=== PATIENT | male | born 1955 | race Caucasian/White ===

== ENCOUNTER 2019-07-15 06:03 | Inpatient (IN) | payer OTHER ==
[2019-07-04 16:23] VITALS: BMI 23.7
[2019-07-15] MEDS ORDERED: BUPIVACAINE HCL/PF 0.5% (5 MG/ML) 30 ML VIAL IJ ONE (06:55)
[2019-07-15] MEDS ORDERED: MIDAZOLAM HCL 2 MG/2 ML SINGLE DOSE VIAL ONE (06:55)
[2019-07-15] MEDS ORDERED: ceFAZolin SODIUM 1 GM VIAL ONE ×2 (07:10→07:21)
[2019-07-15] MEDS ORDERED: VANCOMYCIN 1,000 MG VIAL (RESTRICTED TO ID ONLY) ONE (07:10)
[2019-07-15] MEDS ORDERED: PROPOFOL 20 ML ONE ×2 (07:20→08:00)
[2019-07-15] MEDS ORDERED: SUCCINYLCHOLINE CHLORIDE 200 MG/10 ML SYRINGE ONE (07:20)
[2019-07-15] MEDS ORDERED: TRANEXAMIC ACID 1000 MG/10 ML VIAL ONE (07:21)
[2019-07-15] MEDS ORDERED: ONDANSETRON 4 MG/2 ML VIAL ONE (07:21)
[2019-07-15] MEDS ORDERED: SODIUM CHLORIDE 0.9% P/F 10 ML VIAL IJ ONE (07:21)
[2019-07-15] MEDS ORDERED: DEXMEDETOMIDINE HCL 200 MCG/2 ML IVPB ONE (07:27)
--- NOTE | 2019-07-15 07:57 | HP ---
Satellite [facility] - Chief Complaint Chief Complaint: left hip pain - Past Medical History Allergies/Adverse Reactions: Allergies Allergy/AdvReac Type Severity Reaction Status Date / Time No Known Allergies Allergy Verified 07/15/19 06:55 - Current Medications Current Medications: Home Medications Medication Instructions Recorded Apixaban [Eliquis] 5 mg PO BID 07/04/19 Aspirin [ASA -] 81 mg PO DAILY 07/04/19 Atorvastatin Ca [Lipitor] 40 mg PO HS 07/04/19 Buspirone HCl [Buspar -] 30 mg PO BID 07/04/19 Lisinopril/Hydrochlorothiazide 1 each PO BID 07/04/19 [Lisinopril-Hctz 20-12.5 mg Tab] Metoprolol Succinate 50 mg PO DAILY 07/04/19 Oxycodone HCl/Acetaminophen 1 each PO QID 07/04/19 [Percocet 10-325 mg Tablet] Ranitidine HCl [Zantac] 150 mg PO DAILY 07/04/19 Satellite Physical Exam - Physical Examination Vital Signs: Vital Signs Period Temp Pulse Resp BP Sys/Bautista Pulse Ox Last 24 Hr 98.1 F 60 16 146/91 96 General Appearance: Well Nourished, Well Developed, Alert & Oriented x3 ENT: Clear Lung: Normal air movement Heart: Regular rate & rhythm Extremities: Other (left hip- + ttp, decr rom, nvi, xrays show grade 4 hip djd) Neurological: Intact, Alert, Oriented Satellite Impression/Plan - Impression/Plan Impression: left hip djd Operative Procedure: left giuseppe thr Date to be Performed: 07/15/19
[2019-07-15] MEDS ORDERED: DEXAMETHASONE SOD PHOSPHATE 4 MG/1 ML VIAL ONE (07:59)
[2019-07-15] MEDS ORDERED: ROCURONIUM BROMIDE 50 MG/5 ML SYRINGE ONE (07:59)
[2019-07-15] MEDS ORDERED: LIDOCAINE HCL/PF 2% SDV 5ML VIAL ONE (07:59)
[2019-07-15] MEDS ORDERED: CELECOXIB 200 MG CAPSULE PO ONE (08:20)
[2019-07-15] MEDS ORDERED: CEFAZOLIN 2 GM/D5W 2 GM/50 ML ML IVPB ONE (08:20)
[2019-07-15] MEDS ORDERED: GABAPENTIN 300 MG CAPSULE (FP) PO ONE (08:20)
[2019-07-15] MEDS ORDERED: TRANEXAMIC ACID 1000 MG/10 ML VIAL IVPUSH ONE (08:20)
[2019-07-15] MEDS ORDERED: VANCOMYCIN 1,000 MG VIAL (RESTRICTED TO ID ONLY) IVPB ONE (09:26)
[2019-07-15] MEDS ORDERED: LABETALOL HCL 5 MG/1 ML (100MG/20 ML VIAL) ONE (09:37)
[2019-07-15] MEDS ORDERED: NEOSTIGMINE METHYLSULFATE 0.5 MG/ML - 10 ML MDV ONE (09:43)
[2019-07-15] MEDS ORDERED: KETOROLAC TROMETHAMINE 30 MG/1 ML VIAL ONE (09:44)
[2019-07-15] MEDS ORDERED: GLYCOPYRROLATE 0.2 MG/1 ML VIAL ONE (09:44)
[2019-07-15] MEDS ORDERED: MAG HYDROX/AL HYDROX/SIMETH 30 ML UNIT-DOSE CUP PO PRN ×2 (09:53→10:23)
[2019-07-15] MEDS ORDERED: MAGNESIUM HYDROX 2400MG/30ML ORAL SUSPENSION 30 ML CUP PO PRN ×2 (09:53→10:23)
[2019-07-15] MEDS ORDERED: ONDANSETRON 4 MG/2 ML VIAL IVPUSH PRN ×3 (09:53→10:23)
--- NOTE | 2019-07-15 09:58 | OP ---
Operative Note - Note: Operative Date: 07/15/19 (jayden) Pre-Operative Diagnosis: left hip djd Operation: left giuseppe thr Post-Operative Diagnosis: Same as Pre-op Surgeon: Bucky Saldivar Box Annealer: Fuentes Mackenzie Anesthesiologist/LIVING NURSE: Que Figueroa Anesthesia: General, Local Specimens Removed: femoral head Estimated Blood Loss (mls): 100 Operative Report Dictated: Yes
[2019-07-15] MEDS ORDERED: PATIENT'S OWN MEDICATION (NON-FORMULARY) (Lisinopril/Hydrochlorothiazide [Lisinopril-Hctz PO SCH ×2 (10:00→10:30)
[2019-07-15] MEDS ORDERED: SENNOSIDES/DOCUSATE COMBO (SENNA PLUS) TABLET (UD) PO SCH (10:00)
[2019-07-15] MEDS ORDERED: PANTOPRAZOLE 40 MG TABLET (FP) PO SCH (10:00)
[2019-07-15] MEDS ORDERED: LACTATED RINGERS SOLUTION 1,000 ML IV SCH ×2 (10:00→10:30)
[2019-07-15] MEDS ORDERED: RANITIDINE HCL 150 MG TABLET (FP) PO SCH ×2 (10:00→10:30)
[2019-07-15] MEDS ORDERED: BUSPIRONE HCL PO SCH ×2 (10:00→10:30)
[2019-07-15] MEDS ORDERED: MULTIVITAMINS (DAILY MVI) TABLET (FP) PO SCH (10:00)
[2019-07-15] MEDS ORDERED: PROMETHAZINE HCL 25 MG/1 ML VIAL IVPUSH PRN (10:22)
[2019-07-15] MEDS ORDERED: oxyCODONE HCL 5 MG TABLET PO PRN (10:22)
[2019-07-15] MEDS ORDERED: oxyCODONE HCL 5 MG TABLET ONE (11:33)
[2019-07-15] MEDS ORDERED: ACETAMINOPHEN 325 MG TABLET (FP) ONE (11:33)
[2019-07-15] MEDS: oxyCODONE HCL 5 MG TABLET PO PRN ×3 (11:35→20:03)
[2019-07-15] MEDS: ACETAMINOPHEN 325 MG TABLET (FP) PO SCH ×3 (11:35→23:15)
[2019-07-15] MEDS ORDERED: HYDROmorphone HCL 0.5 MG/0.5 ML SYRINGE ONE (11:48)
[2019-07-15] MEDS ORDERED: HYDROmorphone HCL CARPU-JECT 2 MG/1 ML DISP.SYRIN IVPUSH ONE (11:50)
[2019-07-15] MEDS: PANTOPRAZOLE 40 MG TABLET (FP) PO SCH (13:06)
[2019-07-15] MEDS ORDERED: KETOROLAC TROMETHAMINE 30 MG/1 ML VIAL IVPUSH SCH (15:30)
[2019-07-15] MEDS ORDERED: CEFAZOLIN 2 GM in DEXTROSE 5%-WATER - 50 ML IVPB SCH (16:00)
[2019-07-15] MEDS: KETOROLAC TROMETHAMINE 30 MG/1 ML VIAL IVPUSH SCH (16:01)
[2019-07-15] MEDS: diazePAM 5 MG TABLET PO SCH ×2 (16:02→23:15)
[2019-07-15] MEDS: CEFAZOLIN 2 GM/D5W 2 GM/50 ML ML IVPB SCH ×2 (16:03→23:16)
[2019-07-15] MEDS: HYDROCHLOROTHIAZIDE 12.5 MG CAPSULE (FP) PO SCH (21:15)
[2019-07-15] MEDS: busPIRone HCL 5 MG TABLET PO SCH (21:15)
[2019-07-15] MEDS: SENNOSIDES/DOCUSATE COMBO (SENNA PLUS) TABLET (UD) PO SCH (21:15)
[2019-07-15] MEDS: ATORVASTATIN CA 40 MG TABLET (FP) PO SCH (21:16)
[2019-07-15] MEDS: oxyCODONE HCL 10 MG SUSTAINED ACTING TABLET PO SCH (21:16)
[2019-07-15] MEDS: LISINOPRIL 20 MG TABLET (FP) PO SCH (21:16)
[2019-07-15] MEDS ORDERED: ATORVASTATIN CA 40 MG TABLET (FP) PO SCH (22:00)
[2019-07-15] MEDS: HYDROmorphone HCL CARPU-JECT 1 MG/1 ML DISP.SYRIN IVPB PRN (22:18)
[2019-07-16] MEDS: KETOROLAC TROMETHAMINE 30 MG/1 ML VIAL IVPUSH SCH ×3 (01:36→17:18)
[2019-07-16] MEDS: oxyCODONE HCL 5 MG TABLET PO PRN ×3 (03:59→14:41)
[2019-07-16] MEDS: diazePAM 5 MG TABLET PO SCH ×4 (06:13→23:38)
[2019-07-16] MEDS: ACETAMINOPHEN 325 MG TABLET (FP) PO SCH ×4 (06:13→23:38)
[2019-07-16] MEDS: HYDROmorphone HCL CARPU-JECT 1 MG/1 ML DISP.SYRIN IVPB PRN ×2 (06:35→17:18)
--- NOTE | 2019-07-16 07:23 | CONSULT ---
Consult - Past Medical History Cardio/Vascular: Yes: AFIB, CAD, HTN, Hyperlipdemia Pulmonary: No: Asthma Gastrointestinal: No: GI Bleed, Irritable Bowel Disease Hepatobiliary: No: Cirrhosis Psych: Yes: Anxiety Musculoskeletal: Yes: Osteoarthritis - Past Surgical History Past Surgical History: Yes: CABG - Alcohol/Substance Use Hx Alcohol Use: Yes (very little) - Smoking History Smoking history: Former smoker Have you smoked in the past 12 months: No If you are a former smoker, when did you quit?: 6 mo ago Home Medications - Allergies Allergies/Adverse Reactions: Allergies Allergy/AdvReac Type Severity Reaction Status Date / Time No Known Allergies Allergy Verified 07/15/19 06:55 - Home Medications Home Medications: Ambulatory Orders Apixaban [Eliquis] 5 mg PO BID 07/04/19 Aspirin [ASA -] 81 mg PO DAILY 07/04/19 Atorvastatin Ca [Lipitor] 40 mg PO HS 07/04/19 Buspirone HCl [Buspar -] 30 mg PO BID 07/04/19 Lisinopril/Hydrochlorothiazide [Lisinopril-Hctz 20-12.5 mg Tab] 1 each PO BID Metoprolol Succinate 50 mg PO DAILY 07/04/19 Ranitidine HCl [Zantac] 150 mg PO DAILY 07/04/19 Oxycodone HCl/Acetaminophen [Percocet 5-325 mg Tablet -] 1 - 2 tab PO Q6H #50 tab MDD 8 07/15/19 Review of Systems - Review of Systems Cardiovascular: reports: No Symptoms Respiratory: reports: No Symptoms Gastrointestinal: reports: No Symptoms Genitourinary: reports: No Symptoms Musculoskeletal: reports: Joint Pain, Muscle Weakness Neurological: reports: No Symptoms Physical Exam Vital Signs: Vital Signs Temperature 98.1 F 07/16/19 05:00 Pulse Rate 68 07/16/19 05:00 Respiratory Rate 19 07/16/19 05:00 Blood Pressure 145/84 07/16/19 05:00 O2 Sat by Pulse Oximetry (%) 97 07/16/19 05:00 Cardiovascular: Yes: S1, S2 Respiratory: Yes: Regular, CTA Bilaterally Gastrointestinal: Yes: Normal Bowel Sounds, Soft Musculoskeletal: Yes: Joint Stiffness Edema: No Problem List - Problems (1) Status post left hip replacement Assessment/Plan: per ortho pt on eliquis Code(s): Z96.642 - PRESENCE OF LEFT ARTIFICIAL HIP JOINT (2) S/P CABG (coronary artery bypass graft) Assessment/Plan: no cp same meds monitor ekg Code(s): Z95.1 - PRESENCE OF AORTOCORONARY BYPASS GRAFT (3) HTN (hypertension) Assessment/Plan: Vital Signs Period Temp Pulse Resp BP Sys/Bautista Pulse Ox Last 24 Hr 98.1 F-99.1 F 52-70 16-19 104-159/65-84 97-98 Code(s): I10 - ESSENTIAL (PRIMARY) HYPERTENSION (4) Anxiety Assessment/Plan: on buspar Code(s): F41.9 - ANXIETY DISORDER, UNSPECIFIED
[2019-07-16] MEDS ORDERED: APIXABAN 5 MG TABLET PO SCH (08:00)
[2019-07-16] MEDS ORDERED: ASPIRIN 81 MG CHEWABLE TABLETS PO SCH (08:00)
[2019-07-16 08:04] LABS: HEMATOCRIT 30.9 % (35.4-49); HEMOGLOBIN 10.2 GM/dl (11.7-16.9); MCH 31.5 pg (25.7-33.7); MEAN CELL VOLUME 95.4 fl (80-96); PLATELET COUNT 128 K/MM3 (134-434); RBC 3.24 M/mm3 (4.00-5.60)
--- NOTE | 2019-07-16 08:05 | PN ---
Progress Note (short form) - Note Progress Note: Ortho Pt seen and examined s/p left giuseppe thr pod #1, pt having continued pain and weakness Selected Entries 07/16/19 05:00 Temperature 98.1 F Pulse Rate 68 Respiratory 19 Rate Blood Pressure 145/84 Laboratory Tests 07/16/19 07:11 WBC Pending Hgb Pending Hct Pending Plt Count Pending dressing c/d/i, calf soft, nt nvi a/p Pt requires inpatient admission for pain control and PT PT hip precautions dvt ppx pain control d/c home tomorrow if stable
[2019-07-16] MEDS: ASPIRIN 81 MG CHEWABLE TABLETS PO SCH (08:09)
[2019-07-16] MEDS: APIXABAN 5 MG TABLET PO SCH ×2 (08:10→21:02)
[2019-07-16] MEDS: oxyCODONE HCL 10 MG SUSTAINED ACTING TABLET PO SCH ×2 (09:13→21:02)
[2019-07-16] MEDS: SENNOSIDES/DOCUSATE COMBO (SENNA PLUS) TABLET (UD) PO SCH ×2 (09:13→21:01)
[2019-07-16] MEDS: MULTIVITAMINS (DAILY MVI) TABLET (FP) PO SCH (09:13)
[2019-07-16] MEDS: HYDROCHLOROTHIAZIDE 12.5 MG CAPSULE (FP) PO SCH ×2 (09:13→21:01)
[2019-07-16] MEDS: PANTOPRAZOLE 40 MG TABLET (FP) PO SCH (09:13)
[2019-07-16] MEDS: LISINOPRIL 20 MG TABLET (FP) PO SCH ×2 (09:13→21:01)
[2019-07-16] MEDS: busPIRone HCL 5 MG TABLET PO SCH ×2 (09:17→21:01)
[2019-07-16] MEDS: ATORVASTATIN CA 40 MG TABLET (FP) PO SCH (21:01)
--- NOTE | 2019-07-16 21:20 | EKG ---
Test Reason : Blood Pressure : / mmHG Vent. Rate : 056 BPM Atrial Rate : 056 BPM P-R Int : 148 ms QRS Dur : 086 ms QT Int : 408 ms P-R-T Axes : 062 058 022 degrees QTc Int : 393 ms SINUS BRADYCARDIA POSSIBLE ANTERIOR INFARCT , AGE UNDETERMINED ABNORMAL ECG NO PREVIOUS ECGS AVAILABLE Confirmed by VIDA QUINN, SAVITA ([id number]) on 07/16/2019 9:19:51 PM Referred By: Bucky Saldivar Confirmed By:SAVITA MCPHERSON MD
[2019-07-17] MEDS: KETOROLAC TROMETHAMINE 30 MG/1 ML VIAL IVPUSH SCH ×2 (01:29→09:43)
[2019-07-17] MEDS: ACETAMINOPHEN 325 MG TABLET (FP) PO SCH (06:30)
[2019-07-17] MEDS: diazePAM 5 MG TABLET PO SCH (06:34)
[2019-07-17 06:47] VITALS: BP 189/91; PULSE 79; TEMP 98.2
[2019-07-17 07:05] LABS: HEMOGLOBIN 10.9 GM/dl (11.7-16.9); MCH 31.8 pg (25.7-33.7); MEAN CELL VOLUME 96.6 fl (80-96); MEAN PLT VOLUME 7.7 fl (7.5-11.1); PLATELET COUNT 135 K/MM3 (134-434); RBC 3.42 M/mm3 (4.00-5.60); RDW 12.9 % (11.9-15.9); WHITE BLOOD COUNT 11.9 K/mm3 (4.0-10.8)
[2019-07-17] MEDS: APIXABAN 5 MG TABLET PO SCH (08:05)
[2019-07-17] MEDS: ASPIRIN 81 MG CHEWABLE TABLETS PO SCH (08:10)
--- NOTE | 2019-07-17 08:36 | PN ---
Progress Note (short form) - Note Progress Note: Ortho Pt seen and examined s/p left giuseppe thr pod #2 Selected Entries 07/16/19 22:32 Temperature 98.6 F Pulse Rate 59 L Respiratory 18 Rate Blood Pressure 122/69 Laboratory Tests 07/17/19 06:57 WBC 11.9 H Hgb 10.9 L Hct 33.0 L Plt Count 135 dressing c/d/i, calf soft, nt nvi a/p PT hip precautions dvt ppx pain control d/c home today f/u in 1 week
--- NOTE | 2019-07-17 08:36 | DS ---
Physical Examination Vital Signs: Vital Signs Temperature 98.2 F 07/17/19 06:00 Pulse Rate 79 07/17/19 06:00 Respiratory Rate 18 07/17/19 06:00 Blood Pressure 189/91 H 07/17/19 06:00 O2 Sat by Pulse Oximetry (%) 97 07/17/19 06:00 Labs: CBC, BMP 07/17/19 06:57 Discharge Summary Reason For Visit: OSTEOARTHRITIS Current Active Problems Anxiety (Acute) HTN (hypertension) (Acute) S/P CABG (coronary artery bypass graft) (Acute) Status post left hip replacement (Acute) Procedures: Principal: left thr Hospital Course: admitted for elective left giuseppe thr, post-op course as per protocol, stable for d/c Condition: Good - Instructions Diet, Activity, Other Instructions: Post-op Instructions-Total Hip Replacement Call the office for a follow-up appointment in 1 week - [phone] Resume Marielena and BEA. Pain medication was sent into your pharmacy. Apply Graduated Compression Stockings (TEDs) to both lower extremities- remove daily for hygiene ONLY Apply Sequential Compression Device (SCDs) to both Lower extremities remove for PT and hygiene ONLY Apply cold packs to affected area for 15 minutes every 2 hours. Physical Therapist will come to your home for the first 5 days. You will be set up with outpatient PT at your first post-operative visit. Patient may ambulate as tolerated-encourage self care (at least every 2-3 hours while awake) with walker or cane Maintain Aquacel (waterproof) dressing to operative wound (will be removed by surgeon at first office visit) Shower with Aquacel dressing in place-if Aquacel integrity compromised, remove and apply dry sterile dressing and notify Orthopedist. DO NOT SHOWER unless Orthopedists approves without Aquacel dressing CONTACT THE OFFICE FOR ANY CHANGE IN YOUR CONDITION (for example-fever greater than 102 degrees, excessive bleeding from operative site, purulent drainage, severe swelling or pain) GO TO THE EMERGENCY ROOM IF THERE IS A MEDICAL EMERGENCY Hip Precautions: * Keep a rolled towel under affected heel while in bed or chair (to keep knee in extension) * Dependent upon approach: * Posterior - do not cross legs; do not sit on low chairs or toilets. * If you have any questions, please do not hesitate to call the office - . Referrals: Bucky Saldivar MD [Staff Physician] - - Home Medications Comprehensive Discharge Medication List: Ambulatory Orders Apixaban [Eliquis] 5 mg PO BID 07/04/19 Aspirin [ASA -] 81 mg PO DAILY 07/04/19 Atorvastatin Ca [Lipitor] 40 mg PO HS 07/04/19 Buspirone HCl [Buspar -] 30 mg PO BID 07/04/19 Lisinopril/Hydrochlorothiazide [Lisinopril-Hctz 20-12.5 mg Tab] 1 each PO BID Metoprolol Succinate 50 mg PO DAILY 07/04/19 Ranitidine HCl [Zantac] 150 mg PO DAILY 07/04/19 Oxycodone HCl/Acetaminophen [Percocet 5-325 mg Tablet -] 1 - 2 tab PO Q6H #50 tab MDD 8 07/15/19
[2019-07-17] MEDS: PANTOPRAZOLE 40 MG TABLET (FP) PO SCH (09:40)
[2019-07-17] MEDS: LISINOPRIL 20 MG TABLET (FP) PO SCH (09:40)
[2019-07-17] MEDS: busPIRone HCL 5 MG TABLET PO SCH (09:41)
[2019-07-17] MEDS: SENNOSIDES/DOCUSATE COMBO (SENNA PLUS) TABLET (UD) PO SCH (09:41)
[2019-07-17] MEDS: HYDROCHLOROTHIAZIDE 12.5 MG CAPSULE (FP) PO SCH (09:41)
[2019-07-17] MEDS: MULTIVITAMINS (DAILY MVI) TABLET (FP) PO SCH (09:42)
[2019-07-17] MEDS: oxyCODONE HCL 10 MG SUSTAINED ACTING TABLET PO SCH (09:42)
--- NOTE | 2019-07-17 09:49 | OP ---
DATE OF OPERATION: 07/15/2019 PREOPERATIVE DIAGNOSIS: Degenerative joint disease, left hip. POSTOPERATIVE DIAGNOSIS: Degenerative joint disease, left hip. PROCEDURE: Left total hip replacement, robotic-assisted navigation (MAKOplasty). SURGICAL ATTENDING: Shaun Saldivar MD MANAGER OF ADMINISTRATION: SAMEER Qureshi ANESTHESIA: Regional and general. CLOSURE: A Lynn total hip system with a 58 Press-Fit Trident II acetabulum, and number 10 Accolade II Press-Fit femoral stem, and a standard 36-mm ceramic femoral head, No. 1 Vicryl for capsule and fascia, 0 and 2-0 subcutaneous and 3-0 V-Loc for skin, 4-0 undyed Vicryl for pin sites. ESTIMATED BLOOD LOSS: Approximately 100 mL. COMPLICATIONS: None. CONDITION: To recovery room in stable condition. DESCRIPTION OF PROCEDURE: The patient was taken to the operating room on July 15, 2019. Regional and general anesthesia were administered by the anesthesiologist. IV Kefzol and TXA were administered prophylactically prior to the case. Patient was placed in the lateral decubitus position with all prominences well padded. Left hip area was prepped and draped in the usual sterile fashion. Through 3 small stab incisions, 3 threaded pins were placed between the 2 tables of the iliac crest a few centimeters from the ASIS. Onto these pins was assembled the navigation array. A posterior approach was utilized to gain access to the hip. A 12-cm curved longitudinal incision centered over the posterolateral aspect of the greater trochanter was incised, hemostasis achieved with Bovie cautery. Sharp dissection was carried down to the level of the fascia, which was opened the entire length of the incision. A Charnley retractor was placed in this layer. Care was taken not to impale the sciatic nerve. The short external rotators were detached from their insertion in the greater trochanter and peeled off the capsule. A capsulotomy was then performed exposing the femoral head. A checkpoint was malleted for preoperative registration of the , and offset was measured with the checkpoint in the greater trochanter and a site with an EKG pad on the inferior pole of the patella. After registration was performed, the hip was dislocated. It was osteotomized at the appropriate level as directed by the navigation device. Anterior and posterior retractors were then applied. Circumferential debridement of the labrum was performed. A pelvic checkpoint was then malleted superior to the acetabulum. The acetabulum was then registered with the navigation device with multiple sites in and around the pelvis. Excellent registration was confirmed by "popping the bubbles." The 58 reamer was then placed on the robot, and the acetabulum was reamed as to the plan that we had virtually placed on the patient's virtual anatomy on the computer. was obtained. As we had seen preoperatively, there was a large superior cyst. The cyst was curetted out of its soft tissue. I then reaming from the femoral head, the acetabular reamer was reapplied and was reverse reamed to flatten out any of the bone graft. A 58-mm Trident II shell was then malleted into place, version of 22 degrees and of 40 degrees as we had preoperatively templated and bottomed out under direct visualization and as confirmed by the navigation device. Excellent fixation was obtained. No screws were applied. A polyethylene liner with 10-degree lip was clipped into place with the clips in the superior posterior quadrant. Next our attention was directed to the femur. The femur was prepared by using a box chisel, a canal finder reamer and serial broaches so a number 10 broach achieved good fit and fill. A trial reduction 127 degrees standard head achieved excellent stability in marked flexion, excellent stability at 90 degrees of flexion with abduction and internal rotation, positive hanging test, negative telescoping, and good stability in extension and external rotation. Limb lengths were judged both by surgeon palpation as well as by the navigation device, which was a few millimeters longer than the nonoperative side. The trial components were removed. The real No. 10 Accolade II stem was malleted into place, and standard 36-mm ceramic head was cold welded to the trunnion, and then head was reduced. Range of motion, stability, and leg lengths were as described earlier. Limb lengths were confirmed by the robotic arm as well. Checkpoints were removed, hip was pulse antibiotic irrigated, and checked for hemostasis one last time. Vancomycin powder was then placed in the hip joint. The of the acetabulum was closed as best as possible with No. 1 Vicryl. No. 1 Vicryl was used to close the fascia, interrupted suture of 0 and 2-0 subcutaneous, 3-0 V-Loc for skin with skin glue. The pins were removed from the ilium, pulse antibiotic irrigated, and then closed using 4-0 undyed Vicryl stitch. Sterile Aquacel dressing was then placed over both sites. Patient was flipped to the supine position. Bilateral SCDs and abduction pillow were applied. X-ray was performed which showed excellent position of the components. Patient was awakened from anesthesia and transferred to the recovery room in stable condition. No complications. Estimated blood loss was 100 mL. SHAUN SALDIVAR M.D. [id number]
--- NOTE | 2019-07-18 17:43 | PATH ---
Surgical Pathology Report Patient Name: REMEDIOS ROBLES Med. Rec. #: [id number] /Age/Gender: 1955 (Age: 64) / M Account: [id number] Location: [facility] MED-SURG Taken: 07/15/2019 Received: 07/16/2019 Reported: 07/18/2019 Physicians: Bucky Saldivar M.D. Specimen(s) Received LEFT FEMORAL HEAD Clinical History Osteoarthritis left hip Final Diagnosis BONE, FEMORAL HEAD, LEFT, TOTAL HIP REPLACEMENT MAKOPASTY: BONE WITH DEGENERATIVE JOINT DISEASE. Electronically Signed Ashlie Keenan M.D. Gross Description Received in formalin, labeled "left femoral head," is a 6.5 x 4.5 x 4.2 cm. femoral head. The margin of resection is smooth. There is a 4 cm in greatest dimension area of eburnation present. The remaining articular surface is lopez-brown and focally granular. The underlying trabecular bone is yellow and hard. A sales donor recruitment representative section is submitted in one cassette, following decalcification. MARGUERITE/07/16/2019 mo/07/16/2019
== END 2019-07-17 12:15 | disposition home health service (06) | DRG 470 ==
LOC: FASUSAT 06:03 → UNDOADMIN 06:03 → FM/S 06:03 → EDSTATUS 09:30 → FM/S 10:03 → FASUSAT 10:03 → FM/S 07-16 07:57
PROVIDERS: ADMIT Orthopaedic Surgery; ATTEND Orthopaedic Surgery
PROC: 8E0W0CZ Robotic Assisted Procedure of Trunk Region, Open Approach (ICD-10-PCS; 2019-07-15)
PROC: 0SRB03A Replacement of Left Hip Joint with Ceramic Synthetic Substitute, Uncemented, Open Approach (ICD-10-PCS; principal; 2019-07-15 08:00)
DX: M16.12 Unilateral primary osteoarthritis, left hip (principal); I10 Essential (primary) hypertension; F41.9 Anxiety disorder, unspecified; I25.10 Atherosclerotic heart disease of native coronary artery without angina pectoris; Z95.1 Presence of aortocoronary bypass graft; E78.5 Hyperlipidemia, unspecified; I48.91 Unspecified atrial fibrillation
CPT/HCPCS: 36415; 73502-TC-LT-FY; 85027; 88305-TC; 88311-TC; 93005; 94760; 97116-GP; 97163-GP